=== PATIENT | female | born 1950 | race American Indian/Alaskan Native ===

== ENCOUNTER 2022-04-16 07:36 | Day surgery (SDC) | payer MEDICARE ==
[~2022-04-16 07:36] MED LIST: MIDAZOLAM 2 MG/2 ML INJ IV NR; SODIUM CHLORIDE 0.9% 1000 ML 1,000 ML IV SCH; ceFAZolin/Water 2 GM/20 ML 2 GM/20 ML SYRINGE IV NR; fentaNYL 100 MCG/2 ML INJ IV PRN
[2022-04-16] MEDS ORDERED: ceFAZolin/Water 2 GM/20 ML 2 GM/20 ML SYRINGE IV ONE (08:30)
[2022-04-16] MEDS ORDERED: ceFAZolin/Water 2 GM/20 ML 2 GM/20 ML SYRINGE IV NR (09:00)
--- NOTE | 2022-04-16 09:35 | Anesthesia Consultation ---
Anesthesia Consult and Med Hx Date of service: 04/16/22 - Airway Anesthetic Teeth Evaluation: Edentulous ROM Head & Neck: Adequate Mental/Hyoid Distance: Adequate Mallampati Class: Class III Intubation Access Assessment: Possibly Difficult - Pre-Operative Health Status ASA Pre-Surgery Classification: ASA3 Proposed Anesthetic Plan: MAC Nerve Block: supraclavicular - Pulmonary Hx Smoking: No Hx Asthma: Yes (no inhaler use in many years) Hx Respiratory Symptoms: No - Cardiovascular System Hx Hypertension: Yes Hx Heart Attack/AMI: No Hx Percutaneous Transluminal Coronary Angioplasty (PTCA): No - Central Nervous System CVA: No Hx Psychiatric Problems: Yes (depression) - Endocrine Hx Renal Disease: Yes (CKD 5; not yet on HD) Hx Liver Disease: No Hx Insulin Dependent Diabetes: Yes Hx Thyroid Disease: No - Additional Comments Anesthesia Medical History Comments: No hx anesthetic complications.
[2022-04-16 09:36] LABS: Hematocrit 31.6 % (30.3-42.9); Hemoglobin 10.8 gm/dl (10.1-14.3); Mean Corpuscular HGB Conc 34 % (30-34); Mean Corpuscular Volume 89 fl (79-97); Platelet Count 245 K/mm3 (140-440); Red Blood Count 3.55 M/mm3 (3.65-5.03); Red Cell Distribution Width 13.2 % (13.2-15.2)
--- NOTE | 2022-04-16 09:36 | Anesthesia Day of Surgery ---
Anesthesia Day of Surgery - Day of Surgery Patient Examined: Yes Patient H&P Reviewed: Yes Patient is NPO: Yes
[2022-04-16] MEDS ORDERED: BUPIVACAINE/PF (0.25%) 2.5 MG/ML 30 ML VIAL INFILTRATI ONE (09:41)
[2022-04-16] MEDS ORDERED: LIDOCAINE MPF (2%) 20 MG/1 ML VIAL 5 ML ONE (09:43)
[2022-04-16] MEDS ORDERED: propofoL 200 MG/20 ML VIAL IV ONE (09:44)
[2022-04-16 09:46] LABS: Calcium 9.7 mg/dL (8.4-10.2)
[2022-04-16] MEDS ORDERED: BUPIVACAINE/PF (0.5%) 5 MG/1 ML 30 ML VIAL INFILTRATI ONE (09:46)
[2022-04-16] MEDS ORDERED: HEPARIN 10,000 UNITS/10 ML VIAL ONE (09:46)
[2022-04-16] MEDS ORDERED: SODIUM CHLORIDE 0.9% 500 ML 500 ML ONE (09:46)
[2022-04-16] MEDS ORDERED: SODIUM CHLORIDE 0.9% 250ML 250 ML ONE (09:47)
[2022-04-16] MEDS ORDERED: rifAMPin 600 MG VIAL ONE (09:47)
[2022-04-16] MEDS ORDERED: HEPARIN 10,000 UNITS/10 ML VIAL IR ONE (11:23)
[2022-04-16] MEDS ORDERED: SODIUM CHLORIDE 0.9% 500 ML IVPB IRRIGATION ONE (11:24)
[2022-04-16] MEDS ORDERED: SODIUM CHLORIDE 0.9% IRR 1,500 ML BOTTLE IR ONE (11:24)
[2022-04-16] MEDS ORDERED: rifAMPin 600 MG VIAL IV ONE (11:24)
[2022-04-16] MEDS ORDERED: SODIUM CHLORIDE 0.9% 250 ML IVPB IR ONE (11:25)
[2022-04-16] MEDS ORDERED: PHENYLEPHRINE/NS 1,000 MCG/10 ML SYRINGE (OR USE) IV ONE (11:43)
--- NOTE | 2022-04-16 12:25 | Short Stay Summary ---
Short Stay Documentation Date of service: 04/16/22 Narrative H&P: See H&P - History H&P: obtained from office - Allergies and Medications Current Medications: Allergies No Known Allergies Allergy (Verified 04/09/22 10:50) Home Medications Medication Instructions Recorded Confirmed Last Taken Type Atenolol [Tenormin] 100 mg PO DAILY 04/09/22 04/09/22 04/15/22 History AtorvaSTATin [Lipitor] 80 mg PO QHS 04/09/22 04/09/22 04/15/22 History Bumetanide 2 mg PO 2XW 04/09/22 04/09/22 04/15/22 History Chlorthalidone [Thalitone] 25 mg PO DAILY 04/09/22 04/09/22 04/15/22 History Dulaglutide [Trulicity] 1.5 mg SQ 1XW 04/09/22 04/09/22 04/15/22 History Insulin Degludec [Tresiba 0 unit SQ PRN PRN 04/09/22 04/09/22 04/15/22 History Flextouch U-100] Insulin Lispro [Humalog 100 8 units SQ PRN PRN 04/09/22 04/09/22 04/15/22 History UNITS/ML Kwikpen] calcitrioL [Rocaltrol] 0.25 mcg PO DAILY 04/09/22 04/09/22 04/15/22 History lisinopriL [Lisinopril] 40 mg PO DAILY 04/09/22 04/09/22 04/15/22 History Active Medications Fentanyl (Fentanyl 100 Mcg/2 Ml Inj) 100 mcg IV ONCE PRN PRN Reason: sedation for nerve block Stop: 04/16/22 23:59 Last Admin: 04/16/22 10:25 Dose: 50 mcg Sodium Chloride (Nacl 0.9% 1000 Ml) 1,000 mls @ 42 mls/hr IV DIRECT CHRISTINE Stop: 04/16/22 23:59 Last Admin: 04/16/22 09:20 Dose: 42 mls/hr Cefazolin Sodium (Ancef/Sterile Water 2 Gm/20 Ml) 2 gm in 20 mls @ 80 mls/hr IV PREOP NR; Protocol Stop: 04/16/22 23:00 Midazolam HCl (Midazolam 2 Mg/2 Ml Inj) 2 mg IV PREOP NR Stop: 04/16/22 23:59 Last Admin: 04/16/22 10:25 Dose: 2 mg - Brief post op/procedure progress note Date of procedure: 04/16/22 Pre-op diagnosis: Chronic Renal Insufficiency Post-op diagnosis: same Procedure: Creation of Left Brachial Artery to Left Axillary Vein Arteriovenous Graft with 5 mm Bovine Artegraft Anesthesia: MAC, regional Surgeon: YOEL CARROLL Estimated blood loss: minimal Pathology: none Condition: stable - Disposition Condition at discharge: Good Disposition: 01 HOME / SELF CARE / HOMELESS Short Stay Discharge Plan Activity: other (No heavy lifting with left arm for 2 weeks.) Wound: open to air, keep clean and dry, other (Okay to wash the left arm incisions with soap and water but do not soak in water for 2 weeks.) Follow up with: YOEL CARROLL MD [Staff Physician] - 14 Days Prescriptions: HYDROcodone/APAP 5-325 [[place] 5/325] 1 each PO Q4HR PRN #30 tablet PRN Reason: Pain
--- NOTE | 2022-04-16 12:29 | Operative Report ---
Operative Report Operative Report: Date of procedure: 04/16/2022 Pre-operative diagnosis: Stage IV Chronic Renal Insufficiency Post-operative diagnosis: Same Procedure(s): 1. Creation of Left Brachial Artery to Left Axillary Vein AV Graft with 5 mm Bovine Graft Artergraft Surgeon: Paulo Martinez MD Engineering Director: None Anesthesia: Regional/MAC EBL: Minimal Counts: Correct Complications: None Condition: Stable Findings: Successful Creation of Left Arm AV Graft with Palpable Thrill and Palpable Radial Pulse at the Completion of the Case. Specimen: None Indication: The patient is a 71-year-old female with a history of chronic renal sufficiency who was not yet on hemodialysis however it is anticipated that she will progress to end-stage renal disease requiring hemodialysis in the near future. She is in need of permanent dialysis access to avoid placement of a permacath. She was worked up and found to be a suitable candidate for creation of a left arm arteriovenous graft. She was given the risk, benefits, and alternative procedures and consented to the procedure. Description of Procedure: Prior to being transported to the operating room the patient had a regional block of the left arm performed. After the block was performed the patient was transported to the operating room and adequately sedated. The patient's left arm was then prepped and draped in normal sterile fashion. A longitudinal incision was made on the medial aspect of the arm just proximal to the antecubital crease and carried down to the brachial artery using sharp dissection. The brachial artery was dissected out circumferentially both proximally and distally and controlled with vessel loops. A second incision was created in longitudinal fashion on the medial aspect of the arm just distal to the axillary crease and carried down to the axillary vein using sharp dissection. Axillary vein was dissected out circumferentially and controlled with a vessel loop. I then used a Dinora-Wick tunneler to tunnel from the brachial artery incision to the axillary vein incision and then pulled an 5 mm bovine through the tunnel. I infused with heparinized saline to ensure that it was not twisted or kinked. I put the brachial artery vessel loops on tension controlling the flow and then created an arteriotomy using an 11 blade and Olivo scissors. I beveled the graft and created an end-to-side anastomosis using 6-0 Prolene running fashion. I clamped the graft just proximal to the anastomosis and then released the vessel loops restoring flow in the brachial artery. I placed quick clot in incision to achieve hemostasis. I cut the proximal end of the graft to the appropriate length and beveled the graft in preparation for a venous anastomosis. I controlled the axillary vein a Satinsky clamp and created a venotomy using an 11 blade and Olivo scissors. I created an end to side anastomosis using a 6-0 Prolene in running fashion. Prior to completing the anastomosis I flushed the graft to ensure there was no thrombus and then completed the anastamosis. I released all clamps allowing flow into the AV graft which had an excellent thrill. I packed the wound with quick clot to achieve hemostasis. I closed both wounds in 2 layers using 3-0 Vicryl in running fashion in the deep dermal layer and 4-0 Monocryl in running fashion the subcuticular layer. I dressed both wounds with Dermabond. The patient tolerated the procedure well all sponge, needle, and instrument counts were correct. The patient was taken to recovery in stable condition.
--- NOTE | 2022-04-16 13:53 | Post Anesthesia Evaluation ---
- Post Anesthesia Evaluation Patient Participated: Yes Airway Patent: Yes Stable Respiratory Function: Yes Nausea/Vomiting: No Temp > 96.8F: Yes Pain Manageable: Yes Adequeate Hydration: Yes Anesthesia Complications: No
[2022-04-16 14:28] VITALS: BP 123/76
== END 2022-04-16 14:15 | disposition home or self-care (01) ==
LOC: OR 07:36
PROVIDERS: ATTEND Surgery Vascular Surgery
DX: I12.0 Hypertensive chronic kidney disease with stage 5 chronic kidney disease or end stage renal disease (principal); E11.22 Type 2 diabetes mellitus with diabetic chronic kidney disease; N18.5 Chronic kidney disease, stage 5; H40.9 Unspecified glaucoma; E78.00 Pure hypercholesterolemia, unspecified; J45.909 Unspecified asthma, uncomplicated; M19.90 Unspecified osteoarthritis, unspecified site; F32.9 Major depressive disorder, single episode, unspecified; Z72.89 Other problems related to lifestyle; Z87.440 Personal history of urinary (tract) infections; Z98.890 Other specified postprocedural states
CPT/HCPCS: 36415; 36830; 64415; 80048; 82962; 85027; C1768; J0690; J1644; J2250; J2370; J2704; J3010; J3490; J7030; J7040; J7050; 64450